=== PATIENT | female | born 1970 | race Caucasian/White ===

== ENCOUNTER 2016-10-27 20:04 | Emergency (ER) | payer BC ==
[~2016-10-27] VITALS: Ht 152.4 cm; Wt 54.4 kg
[2016-10-27 20:04] VITALS: BP_SYST 139
--- NOTE | 2016-10-27 20:08 | NUR ---
Patient to ER bed H1 to gown for evaluation. Side rails up.
--- NOTE | 2016-10-27 20:10 | NUR ---
Kinza Andrade [employer] at bedside examining patient
--- NOTE | 2016-10-27 20:12 | NUR ---
Patient reports that she was cutting oranges at her home tonight and cut herself right below her left 4th and 5th finger. No other complaints/injuries per patient or as noted. Will continue to monitor.
[2016-10-27 20:54] VITALS: BP_SYST 122
--- NOTE | 2016-10-27 20:54 | NUR ---
Patient given written and verbal discharge instructions and verbalizes understanding. ER PRODUCT MANAGER [employer] discussed with patient the results and treatment provided. Patient in stable condition. ID arm band removed. Rx of Motrin given. Patient educated on pain management and to follow up with PMD in 2-3 days. Pain Scale 0/10 Opportunity for questions provided and answered.
== END 2016-10-27 20:54 | disposition home or self-care (01) ==
LOC: SED 20:04
DX: S61.412A Laceration without foreign body of left hand, initial encounter (principal); R03.0 Elevated blood-pressure reading, without diagnosis of hypertension; Z98.890 Other specified postprocedural states; W26.0XXA Contact with knife, initial encounter; Y93.89 Activity, other specified; Y92.89 Other specified places as the place of occurrence of the external cause; Y99.8 Other external cause status
CPT/HCPCS: 99283